=== PATIENT | male | born 1980 ===

== ENCOUNTER 2021-01-21 13:59 | Emergency (ER) | payer OTHER ==
--- NOTE | 2021-01-21 14:38 | EDM.PDOC ---
ED HPI GENERAL MEDICAL PROBLEM - General Chief Complaint: Head Injury Stated Complaint: HIT HEAD ON TRUCK AT WORK@0900 DIFFICULT C MEMORY Time Seen by Provider: 01/21/21 14:22 - History of Present Illness INITIAL COMMENTS - FREE TEXT/NARRATIVE: History of present illness: [] The patient remembers going to work in his own vehicle today with does not member what happened. He says bystanders told him that he had fallen off a ella ck and was knocked out. He is having little trouble memory and short-term since this happened. 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 He had a brief LOC. He has had memory trouble since. Patient complained of swelling and pain in the right hand where he had a previous boxer's fracture and some pain in the left hand where he had a previous deformity from injury to the left middle finger. Patient also had an abrasion and pain in the right hip area. Review of systems: As per history of present illness and below otherwise all systems reviewed and negative. Past medical history: As per history of present illness and as reviewed below otherwise noncontributory. Surgical history: As per history of present illness and as reviewed below otherwise noncontributory. Social history: No reported history of drug or alcohol abuse. Family history: As per history of present illness and as reviewed below otherwise noncontributory. Physical exam: Constitutional - well developed, well-nourished and in no acute distress HEENT - normocephalic, no evidence of trauma - external nose and mouth normal - no mass in neck and no JVD - mucosae moist -C-spine cleared by Nexus criteria EYES - full EOM, PERRL, no icterus - no evidence of inflammation, injection, or drainage Respiratory - no respiratory distress, equal bilateral expansion, lungs clear to auscultation and no abnormal lung sounds Cardiovascular - Regular Rhythm with S1 and S2 appreciated and no murmur, gallop or rub. GI - abdomen soft without distension or organomegaly - normal bowel sounds - no guard or rebound Musculoskeletal tenderness of distal right fifth metacarpal area, deformity of the left middle finger but no tenderness and no new deformity according to the patient, tenderness of the right hip. No gross deformity of long bones or joints - no tenderness, swelling or edema Neurologic - Alert and oriented times four - CN II-XII grossly intact - motor sensory and coordination symmetrically normal Psychiatric - appropriate mood and affect with normal thought content Hematologic - No petechiae or purpura - mucosa appropriate color and sclera not pale - normal nail bed color and refill Integument -abrasion over right hip. No rash or evidence of trauma - normal turgor Diagnostics: [] Therapeutics: [] Impression: [] Plan: [] Definitive disposition and diagnosis as appropriate pending reevaluation and review of above. - Related Data Allergies Allergy/AdvReac Type Severity Reaction Status Date / Time No Known Allergies Allergy Verified 01/21/21 14:13 Home Meds: Home Meds . [No Known Home Meds] 01/21/21 [History] Past Medical History HEENT History: Reports: Allergic Rhinitis, Other (See Below) Other HEENT History: Dentures to upper Respiratory History: Reports: Other (See Below) Other Respiratory History: Patient uses proventil inhaler "for allergies". Patient denies dyspnea and SOB. Musculoskeletal History: Reports: Other (See Below) Other Musculoskeletal History: Right knee meniscus tear Neurological History: Reports: Concussion Oncologic (Cancer) History: Reports: None - Infectious Disease History Infectious Disease History: Reports: None - Past Surgical History HEENT Surgical History: Reports: Oral Surgery Respiratory Surgical History: Reports: None GI Surgical History: Reports: None Male Surgical History: Reports: None Neurological Surgical History: Reports: None Musculoskeletal Surgical History: Reports: None Oncologic Surgical History: Reports: None Dermatological Surgical History: Reports: None Social & Family History - Family History Family Medical History: No Pertinent Family History - Caffeine Use Caffeine Use: Reports: Energy Drinks, Soda - Recreational Drug Use Recreational Drug Use: No ED ROS GENERAL - Review of Systems Review Of Systems: Comprehensive ROS is negative, except as noted in HPI. ED EXAM, HEAD INJURY - Physical Exam Exam: See Below Text/Narrative:: My physical exam is in the HPI Course - Vital Signs Text/Narrative:: CT and x-rays were unremarkable. Patient discharged in satisfactory condition. He understands his instructions. Last Recorded V/S: Last Vital Signs Temp 36.4 C 01/21/21 14:14 Pulse 90 01/21/21 14:14 Resp 16 01/21/21 14:14 BP 174/103 H 01/21/21 14:14 Pulse Ox 97 01/21/21 14:14 Departure - Departure Time of Disposition: 15:47 Disposition: Home, Self-Care 01 Condition: Good Clinical Impression: Concussion injury of brain, Contusion of right hand - Discharge Information Instructions: Concussion, Adult, [id number] Referrals: PCP,None [Primary Care Provider] - Forms: ED Department Discharge Additional Instructions: Make sure you do not jeopardize your health by putting yourself in a place where you might have a head injury while you still have a headache or symptoms from this concussion. [facility] [address], [address] [place] [address] The following information is given to patients seen in the emergency department who are being discharged to home. This information is to outline your options for follow-up care. We provide all patients seen in our emergency department with a follow-up referral. The need for follow-up, as well as the timing and circumstances, are variable depending upon the specifics of your emergency department visit. If you don't have a primary care physician on staff, we will provide you with a referral. We always advise you to contact your personal physician following an emergency department visit to inform them of the circumstance of the visit and for follow-up with them and/or the need for any referrals to a consulting specialist. The emergency department will also refer you to a specialist when appropriate. This referral assures that you have the opportunity for follow-up care with a specialist. All of these measure are taken in an effort to provide you with optimal care, which includes your follow-up. Under all circumstances we always encourage you to contact your private physician who remains a resource for coordinating your care. When calling for follow-up care, please make the office aware that this follow-up is from your recent emergency room visit. If for any reason you are refused follow-up, please contact the [facility] Emergency Department at and asked to speak to the emergency department charge nurse. Sepsis Event Note (ED) - Evaluation Sepsis Screening Result: No Definite Risk - Focused Exam Vital Signs: Vital Signs Temp Pulse Resp BP Pulse Ox 01/21/21 14:14 36.4 C 90 16 174/103 H 97
--- NOTE | 2021-01-21 15:35 | CR ---
Indication: Injury, patient amnestic to the event. Possible fall. Technique: Three views Comparison: None Findings: Bones: Alignment is normal. No fractures or bone lesions. Joint spaces: Unremarkable. Soft tissues: Unremarkable. Dictated by uSdhir Juarez MD @ 01/21/2021 3:34:[address] Sudhir Juarez @ Jan 21 2021 3:34PM
--- NOTE | 2021-01-21 15:37 | CR ---
Indication: Injury. Patient amnestic to the event. Possible fall. Technique: Three views Comparison: None Findings: Bones: Alignment is normal. No fractures or bone lesions. Joint spaces: Unremarkable. Soft tissues: Unremarkable. Dictated by Sudhir Juarez MD @ 01/21/2021 3:35:[address] Sudhir Juarez @ Jan 21 2021 3:35PM
--- NOTE | 2021-01-21 15:43 | CT ---
INDICATION: Injury. Patient amnestic to event. Possible fall. TECHNIQUE: CT head without contrast. COMPARISON: None. FINDINGS: CSF spaces: Within normal limits for age. Brain parenchyma: The faulkner-white differentiation is normal. No sign of mass, hemorrhage, or midline shift. Skull base and calvarium: The visualized paranasal sinuses and mastoid air cells demonstrate no acute or significant findings. The visualized orbits are grossly unremarkable. No skull fractures. IMPRESSION: Unremarkable noncontrast head CT. Please note that all CT scans at this facility use dose modulation, iterative reconstruction, and/or weight-based dosing when appropriate to reduce radiation dose to as low as reasonably achievable. Dictated by Sudhir Juarez MD @ 01/21/2021 3:42:[address] Sudhir Juarez @ Jan 21 2021 3:42PM
== END 2021-01-21 15:58 | disposition home or self-care (01) ==
LOC: MW.ED 13:59
DX: S06.0X9A Concussion with loss of consciousness of unspecified duration, initial encounter (principal); S60.221A Contusion of right hand, initial encounter; W18.09XA Striking against other object with subsequent fall, initial encounter
CPT/HCPCS: 70450; 70450-26; 73130-26-RT; 73130-RT; 73502-26-LT; 73502-LT; 99284-25